=== PATIENT | female | born 1955 | race Caucasian/White ===

== ENCOUNTER 2018-06-04 15:18 | Emergency (ER) | payer MEDICARE ==
[2018-06-04] MEDS ORDERED: Ibuprofen TAB* 800 MG PO ONE (16:53)
--- NOTE | 2018-06-04 17:01 | ED ---
Complex/Multi-Sys Presentation - HPI Summary HPI Summary: Patient presents with multiple symptoms status post fall yesterday. She reports she was helping a friend move and got tired so she went to the store to get some water. As she was walking in the store, she reports she misstepped and tripped over her feet and fell. She landed on her knee and hand and then struck the left side of her head. She denies loss of consciousness however she does have a headache and her scalp is quite tender here. Denies visual change, photophobia, nausea, vomiting, neck pain or stiffness, confusion or memory issues. She slept well last night. Her left hand is also swollen and painful to move her fingers at the knuckle joints. Denies numbness tingling or weakness. Her left knee is also swollen and painful with weight bearing and movement. Denies numbness tingling or weakness here as well. Reports a history of fibromyalgia. Has not tried anything yet for pain and reports she would have waited until tomorrow to drive herself for medical evaluation but her friend was willing to bring her today and so she took him up on it. She reports she typically takes 800mg ibuprofen at home for pain which works well and would like to try this today. - History Of Current Complaint Chief Complaint: EDExtremityUpper Time Seen by Provider: 06/04/18 16:11 Hx Obtained From: Patient, Family/Temperer - male friend - Allergies/Home Medications Allergies/Adverse Reactions: Allergies Allergy/AdvReac Type Severity Reaction Status Date / Time codeine Allergy Constipatio Verified 06/04/18 15:42 n erythromycin base Allergy Vomiting Verified 06/04/18 15:42 Tetracyclines Allergy Vomiting Verified 06/04/18 15:42 PMH/Surg Hx/FS Hx/Imm Hx Previously Healthy: Yes Endocrine/Hematology History: Denies: Hx Anticoagulant Therapy, Hx Blood Disorders, Hx Diabetes, Hx Thyroid Disease Cardiovascular History: Denies: Hx Hypertension Respiratory History: Denies: Hx Asthma, Hx Chronic Obstructive Pulmonary Disease (COPD) GI History: Denies: Hx Ulcer Musculoskeletal History: Reports: Hx Fibromyalgia Denies: Hx Osteoporosis - Surgical History Surgery Procedure, Year, and Place: septoplasty, tubal ligation 1992, fatty lumph node removed from arm pit. LEFT ANKLE -2013 Infectious Disease History: No Infectious Disease History: Denies: Hx Hepatitis, Hx Human Immunodeficiency Virus (HIV), Traveled Outside the [place] in Last 30 Days - Social History Alcohol Use: Occasionally Substance Use Type: Reports: Marijuana Hx Tobacco Use: Yes - not currently Smoking Status (MU): Former Smoker Review of Systems Constitutional: Negative Negative: Fatigue Eyes: Negative Negative: Photophobia, Blurred Vision, Diplopia ENT: Negative Negative: Epistaxis, Dental Pain, Sore Throat Cardiovascular: Negative Negative: Chest Pain Respiratory: Negative Gastrointestinal: Negative Negative: Abdominal Pain, Vomiting, Nausea Positive: no symptoms reported Positive: Arthralgia, Myalgia, Decreased ROM, Edema Positive: Bruising Positive: Headache. Negative: Weakness, Paresthesia, Numbness, Syncope, Slurred Speech Psychological: Normal All Other Systems Reviewed And Are Negative: Yes Physical Exam Triage Information Reviewed: Yes Vital Signs On Initial Exam: Initial Vitals Temp Pulse Resp BP Pulse Ox 99.6 F 87 14 95/62 97 06/04/18 15:42 06/04/18 15:42 06/04/18 15:42 06/04/18 15:42 06/04/18 15:42 Vital Signs Reviewed: Yes Appearance: Positive: Well-Appearing, Well-Nourished, Pain Distress - mild to moderate Skin: Positive: Warm, Skin Color Reflects Adequate Perfusion, Dry - Lt MCP's w/ edema, warmth and erythema/ecchymosis (mild) - no skin breakdown; Lt knee is edematous and warm to touch but no skin changes and no deformity; superficial abrasion Lt posterior elbow Head/Face: Positive: Other - Lt scalp w/ exquisite TTP - no skin changes - pt reports bump but difficult to assess d/t tenderness Eyes: Positive: Normal, EOMI, PAT - no photophobia ENT: Positive: Normal ENT inspection, Hearing grossly normal, Pharynx normal - atraumatic, TMs normal - no hemotympanum. Negative: Nasal drainage Dental: Negative: Dental Fracture @ Neck: Positive: Supple, Nontender - FROM w/o pain Respiratory/Lung Sounds: Positive: Breath Sounds Present Cardiovascular: Positive: Pulses are Symmetrical in both Upper and Lower Extremities. Negative: Leg Edema Left, Leg Edema Right Abdomen Description: Positive: Nontender, Soft Musculoskeletal: Positive: Pain @ - Lt MCP's TTP and pain w/ flexion/extension - boggy edema; Lt knee edema, TTP Neurological: Positive: Normal, Sensory/Motor Intact, Alert, Oriented to Person Place, Time, CN Intact II-III Psychiatric: Positive: Normal Procedures - Splinting Left Upper Extremity Hand-Made Type: fiberglass Splint: volar Pre-Proc Neuro Vasc Exam: normal Post-Proc Neuro Vasc Exam: normal Diagnostics - Vital Signs Vital Signs Temp Pulse Resp BP Pulse Ox 06/04/18 15:42 99.6 F 87 14 95/62 97 - Laboratory Lab Statement: Any lab studies that have been ordered have been reviewed, and results considered in the medical decision making process. Complex Multi-Symp Course/Dx Course Of Treatment: Hand XR: OA, no acute findings otherwise. Brain CT: no acute findings. Knee XR: no acute findings. Based on mechanism of injury and the parents of hand, suspect patient sprained some ligaments here. We will place her in a volar splint and have her follow up with PCP. If symptoms do not improve, she may be a candidate for occupational therapy and/or Ortho consult. Discussed supportive care for other injuries and monitoring for head injury although she does not appear to have any neuro deficits today. Patient agrees with plan. - Diagnoses Provider Diagnoses: Sprain, MCP, hand, left, Fall from standing, Head injury, Knee contusion Discharge - Sign-Out/Discharge Documenting (check all that apply): Patient Departure - Discharge Plan Condition: Stable Disposition: HOME Patient Education Materials: Head Injury (ED), Splint Care (ED), Hand Sprain ( ED), Swollen Knee Joint (ED) Referrals: Rigo Marin MD [Primary Care Provider] - Additional Instructions: For head, hand and knee injuries, you may rest, ice, elevate and take ibuprofen with food as needed for pain/swelling Keep splint in placed until seen by orthopedics - call tomorrow to schedule an appointment this week. If your knee pain persists beyond 1-2 weeks, follow-up with PCP. If you develop change in vision, vomiting, dizziness, numbness, weakness, syncope or slurred speech, return to ED - Billing Disposition and Condition Condition: STABLE Disposition: Home
--- NOTE | 2018-06-04 17:20 | RAD ---
INDICATION: Left scalp laceration after a fall the previous day COMPARISON: None. TECHNIQUE: Contiguous axial sections of the brain were obtained from the skull base to the vertex without contrast. FINDINGS: The ventricles, cisterns and sulci are within normal limits. The morales-white matter differentiation is adequately maintained and there is no sulcal effacement. No significant focal abnormality or mass effect is present. There is no evidence for intracranial hemorrhage. No significant focal osseous abnormality is present. The visualized portion of the paranasal sinuses appear clear. The mastoid air cells are well aerated bilaterally. IMPRESSION: Normal CT of the brain.
--- NOTE | 2018-06-04 17:22 | RAD ---
INDICATION: Left knee pain and swelling after a fall the previous day COMPARISON: None TECHNIQUE: 2 view radiograph of the left knee. FINDINGS: The visualized bones are well-corticated and properly aligned. The joint spaces are properly maintained. There is no radiographic evidence of joint effusion. There is no acute fracture, dislocation or other focal bony abnormality. IMPRESSION: No radiographically apparent acute fracture or dislocation of the left knee. If the patient's symptoms persist, follow-up imaging is recommended.
--- NOTE | 2018-06-04 17:22 | RAD ---
INDICATION: Pain and swelling over the left metacarpal phalangeal joints after a fall the previous day COMPARISON: None. TECHNIQUE: 4 views of the left hand were obtained. FINDINGS: The adequately corticated bones are in normal alignment. No significant focal osseous abnormality or fracture is seen. Degenerative changes include mild sclerotic bony remodeling at the left thumb metacarpal trapezium joint. There is disc space narrowing at the interphalangeal joints most severely affecting the left index finger distal interphalangeal joint where there is sclerotic bony remodeling and marginal osteophyte formation. IMPRESSION: Degenerative changes as described above without radiographically apparent acute fracture or dislocation. If the patient's symptoms persist, follow-up imaging is recommended.
[2018-06-04 18:05] VITALS: BP 111/47
== END 2018-06-04 18:03 | disposition home or self-care (01) ==
LOC: ED 15:18
DX: S63.92XA Sprain of unspecified part of left wrist and hand, initial encounter (principal); S80.02XA Contusion of left knee, initial encounter; S09.90XA Unspecified injury of head, initial encounter; S50.312A Abrasion of left elbow, initial encounter; W01.0XXA Fall on same level from slipping, tripping and stumbling without subsequent striking against object, initial encounter; Y93.01 Activity, walking, marching and hiking; Y92.512 Supermarket, store or market as the place of occurrence of the external cause; Z88.1 Allergy status to other antibiotic agents; Z88.5 Allergy status to narcotic agent; Z87.891 Personal history of nicotine dependence
CPT/HCPCS: 70450; 99282; A9270-GY